=== PATIENT | male | born 1945 | race Caucasian/White ===

== ENCOUNTER 2020-06-30 19:23 | Inpatient (IN) | payer MEDICARE, OTHER ==
[~2020-06-30 19:23] MED LIST: BAYER CHEWABLE81 MG PO; CILOSTAZOL100 MG PO; HCTZ25 MG PO; NORVASC5 MG PO; ZESTRIL40 MG PO
[2020-06-30 22:04] LABS: BASOPHIL 0.4 % (0-2); EOSINOPHIL 0.6 % (0-7); HCT 36.4 % (42.0-52.0); HGB 12.5 g/dl (13.2-18.0); MCHC 34.3 g/dL (32.0-36.0); MONOCYTE 10.9 % (0-12); MPV 10.7 fL (6.0-9.5); NEUTROPHIL 66.3 % (41-80); NRBC 0; PLT 291 K/uL (150-400); RBC 3.57 M/uL (4.70-6.00); RDW 12.9 % (11.5-14.0); WBC 10.3 K/uL (4.0-10.5)
[2020-06-30 22:17] LABS: ALBUMIN 2.8 g/dL (3.4-5.0); BILIRUBIN - TOTAL 0.4 mg/dL (0.2-1.0); BUN/CREAT RATIO (CALC) 30.2 RATIO; CREATININE 1.06 mg/dL (0.67-1.17); GLOBULIN (CALCULATION) 4.2 g/dL; MAGNESIUM 1.6 mg/dL (1.8-2.4)
[2020-07-01] MEDS ORDERED: PRINIVIL10 MG PO (01:02)
[2020-07-01] MEDS ORDERED: TOPROL XL50 MG PO (01:03)
[2020-07-01] MEDS ORDERED: CILOSTAZOL100 MG PO (01:03)
[2020-07-01] MEDS ORDERED: ASPIRIN CHEWABL81 MG PO (01:04)
[2020-07-01] MEDS ORDERED: ASPIRIN EC81 MG PO (01:04)
[2020-07-01 04:39] LABS: BASOPHIL 0.5 % (0-2); HCT 33.9 % (42.0-52.0); HGB 11.3 g/dl (13.2-18.0); LYMPHOCYTE 20.3 % (15-48); MCH 34.3 pg (25.0-31.0); MCHC 33.3 g/dL (32.0-36.0); MONOCYTE 11.3 % (0-12); NEUTROPHIL 66.1 % (41-80); NRBC 0; PLT 251 K/uL (150-400); RBC 3.29 M/uL (4.70-6.00); RDW 12.9 % (11.5-14.0); WBC 7.9 K/uL (4.0-10.5)
[2020-07-01 05:13] LABS: BUN/CREAT RATIO (CALC) 28.6 RATIO; CREATININE 1.05 mg/dL (0.67-1.17); POTASSIUM 3.5 mmol/L (3.5-5.1)
[2020-07-01 05:31] LABS: BILIRUBIN NEGATIVE (NEGATIVE); BLOOD NEGATIVE Ery/uL (NEGATIVE); CLARITY CLEAR (CLEAR); COLOR YELLOW (YELLOW); GLUCOSE (U) NORMAL (NORMAL); LEUKOCYTES NEGATIVE Leu/uL (NEGATIVE); NITRITE NEGATIVE (NEGATIVE); PROTEIN NEGATIVE (NEGATIVE); pH 6.5 (5.0-9.0)
[2020-07-01 05:40] LABS: BACTERIA TRACE
[2020-07-02 05:56] LABS: BASOPHIL 0.4 % (0-2); EOSINOPHIL 1.2 % (0-7); HCT 32.5 % (42.0-52.0); HGB 10.8 g/dl (13.2-18.0); LYMPHOCYTE 28.7 % (15-48); MCH 34.5 pg (25.0-31.0); MCHC 33.2 g/dL (32.0-36.0); MCV 103.8 fL (78.0-100.0); MONOCYTE 12.8 % (0-12); MPV 11.1 fL (6.0-9.5); NEUTROPHIL 56.3 % (41-80); NRBC 0; PLT 259 K/uL (150-400); RBC 3.13 M/uL (4.70-6.00); RDW 12.6 % (11.5-14.0); WBC 7.3 K/uL (4.0-10.5)
[2020-07-02 06:14] LABS: BUN/CREAT RATIO (CALC) 17.9 RATIO; C-REACTIVE PROTEIN 1.9 mg/dL (<=0.90); CREATININE 0.95 mg/dL (0.67-1.17); POTASSIUM 4.1 mmol/L (3.5-5.1)
[2020-07-03 07:48] LABS: BASOPHIL 0.5 % (0-2); EOSINOPHIL 0.9 % (0-7); HCT 33.1 % (42.0-52.0); HGB 11.1 g/dl (13.2-18.0); LYMPHOCYTE 27.5 % (15-48); MCH 34.3 pg (25.0-31.0); MCHC 33.5 g/dL (32.0-36.0); MCV 102.2 fL (78.0-100.0); MPV 11.4 fL (6.0-9.5); NEUTROPHIL 59.5 % (41-80); NRBC 0; PLT 294 K/uL (150-400); RBC 3.24 M/uL (4.70-6.00); RDW 12.3 % (11.5-14.0)
[2020-07-03 08:09] LABS: BUN/CREAT RATIO (CALC) 10.4 RATIO; CREATININE 0.96 mg/dL (0.67-1.17)
[2020-07-03] MEDS ORDERED: PERCOCET 7.5/321 TAB PO (13:02)
[2020-07-04 06:52] LABS: BASOPHIL 0.3 % (0-2); EOSINOPHIL 0.1 % (0-7); HCT 26.6 % (42.0-52.0); HGB 8.9 g/dl (13.2-18.0); LYMPHOCYTE 13.3 % (15-48); MCH 34.2 pg (25.0-31.0); MCHC 33.5 g/dL (32.0-36.0); MCV 102.3 fL (78.0-100.0); MONOCYTE 11.7 % (0-12); MPV 11.2 fL (6.0-9.5); NEUTROPHIL 74.1 % (41-80); NRBC 0; PLT 297 K/uL (150-400); RDW 12.1 % (11.5-14.0); WBC 11.2 K/uL (4.0-10.5)
[2020-07-04 07:16] LABS: BUN/CREAT RATIO (CALC) 13.7 RATIO; CREATININE 1.17 mg/dL (0.67-1.17); POTASSIUM 4.5 mmol/L (3.5-5.1)
--- NOTE | 2020-07-04 15:32 | NUR ---
FAXED CLINICALS AND COVID TEST RESULTS TO MATIAS AT [facility] [phone]
[2020-07-05 06:23] LABS: BASOPHIL 0.2 % (0-2); EOSINOPHIL 0.5 % (0-7); HCT 23.7 % (42.0-52.0); HGB 7.8 g/dl (13.2-18.0); LYMPHOCYTE 20.3 % (15-48); MCH 34.1 pg (25.0-31.0); MCHC 32.9 g/dL (32.0-36.0); MCV 103.5 fL (78.0-100.0); MONOCYTE 14.5 % (0-12); MPV 11.6 fL (6.0-9.5); NEUTROPHIL 64.1 % (41-80); NRBC 0; PLT 272 K/uL (150-400); RBC 2.29 M/uL (4.70-6.00); RDW 12.7 % (11.5-14.0); WBC 9.4 K/uL (4.0-10.5)
--- NOTE | 2020-07-05 14:59 | NUR ---
TC TO SON, KAMILLA, ADVISED HIM THAT [facility] DOES NOT TAKE HIS FATHER'S INSURANCE. HE SAID TO TRY [facility] OR [facility]. NEITHER ACCEPT [facility] REPLACMENT. ADVISED THAT NO [facility] FACILITY ACCEPTS [facility]. ADVISED SON THAT [facility] AND HE AGREED FOR A REFERRAL TO BE SENT TO [facility]. SPOKE WITH PT. HE IS ALSO IN AGREEMENT FOR [facility] DUE TO THEM ACCEPTING HIS INSURANCE. PT. SIGNED CHOICE FORM. AFFLIATIONS EXPLAINED. REFERRAL SENT TO [facility]. SPOKE WITH [facility], SHE ADVISED THAT IF PT. IS APPROVED THROUGH INSURANCE THEY WILL BE ABLE TO TAKE PT.
--- NOTE | 2020-07-05 15:45 | NUR ---
TC FROM SON, KAMILLA, HE IS WILLING TO TRANSPORT HIS FATHER TO [facility] WHEN WE RECEIVE AUTHORIZATION.
[2020-07-06 06:53] LABS: BASOPHIL 0.2 % (0-2); EOSINOPHIL 0.6 % (0-7); HCT 31.3 % (42.0-52.0); LYMPHOCYTE 14.1 % (15-48); MCH 33.2 pg (25.0-31.0); MCHC 34.2 g/dL (32.0-36.0); MCV 97.2 fL (78.0-100.0); MONOCYTE 10.5 % (0-12); MPV 12.1 fL (6.0-9.5); NEUTROPHIL 73.6 % (41-80); NRBC 0; PLT 312 K/uL (150-400); RBC 3.22 M/uL (4.70-6.00); RDW 14.6 % (11.5-14.0); WBC 9.8 K/uL (4.0-10.5)
[2020-07-06 07:04] LABS: HGB 10.7 g/dl (13.2-18.0)
[2020-07-06 07:11] LABS: BUN/CREAT RATIO (CALC) 16.2 RATIO; CREATININE 1.05 mg/dL (0.67-1.17); POTASSIUM 3.9 mmol/L (3.5-5.1)
--- NOTE | 2020-07-06 16:24 | NUR ---
GILDARDO FROM [facility]ATEY AT [facility], [facility] AND WAS ADVISED THAT THE CASE IS STILL UNDER CLINICAL REVIEW. SHE WILL ADVISE WHEN SHE RECEIVES AUTH.
[2020-07-07] MEDS ORDERED: FEOSOL325 MG PO (11:44)
[2020-07-07] MEDS ORDERED: DULCOLAX5 MG PO (11:44)
[2020-07-07] MEDS ORDERED: XARELTO10 MG PO (11:46)
--- NOTE | 2020-07-07 11:48 | NUR ---
GILDARDO FROM KATEY AT [facility]. PT. HAS AUTHORIZED FOR ADMISSION FROM [facility]. D/C SUMMARY FAX [phone] REPORT # IS [phone]. CALL [facility] FOR TRANSPORTATION.[phone].
--- NOTE | 2020-07-07 11:58 | NUR ---
ADVVISED DR. HARRIS AND NURSE, JADEN Ashley
--- NOTE | 2020-07-07 14:08 | NUR ---
TC FROM SON, KAMILLA. ADVISED THAT [facility] HAS ACCEPTED HIS FATHER. ADVISED THAT THE NURSE WILL CALL HIM WHEN IT IS TIME TO D/C PATIENT SO THAT HE MAY TRANSPORT HIM. ALSO, ADVISED KAMILLA THAT I HAD GIVEN INCOME BASED HOUSING INFORMATION TO THIS FATHER.
[2020-07-07] MEDS ORDERED: PERCOCET 10-321 EACH PO (14:32)
== END 2020-07-07 16:36 | DRG 522 ==
LOC: FER 19:23 → FMS 07-01 00:01
PROVIDERS: Emergency Medicine; Legal Medicine; Nurse Practitioner; Nurse Practitioner Adult Health; ADMIT Internal Medicine
PROC: 0SRB0JZ Replacement of Left Hip Joint with Synthetic Substitute, Open Approach (ICD-10-PCS; 2020-07-03)
PROC: 30233N1 Transfusion of Nonautologous Red Blood Cells into Peripheral Vein, Percutaneous Approach (ICD-10-PCS; principal; 2020-07-05)
DX: S72.012A Unspecified intracapsular fracture of left femur, initial encounter for closed fracture (principal); D62 Acute posthemorrhagic anemia; M96.840 Postprocedural hematoma of a musculoskeletal structure following a musculoskeletal system procedure; W18.30XA Fall on same level, unspecified, initial encounter; I10 Essential (primary) hypertension; Z20.822 Contact with and (suspected) exposure to COVID-19; Y83.8 Other surgical procedures as the cause of abnormal reaction of the patient, or of later complication, without mention of misadventure at the time of the procedure; G62.9 Polyneuropathy, unspecified; Z87.891 Personal history of nicotine dependence; E86.0 Dehydration; F41.9 Anxiety disorder, unspecified
CPT/HCPCS: 36415; 36430; 70450; 71045; 72100; 73501; 73552; 73700; 76000; 80048; 80053; 81001; 82550; 83735; 84443; 85025; 86140; 86850; 86900; 86901; 86922; 88305; 93005; 94010; 94760; 94762; 97110; 97116; 97162; 97166; 97530-GP; 97535; 99284; C1776; G0378; J0171; J1100; J1170; J1650; J1885; J2060; J2250; J2270; J2370; J2405; J2704; J2795; J3010; J3475; J7030; J7120; P9016; U0002